=== PATIENT | male | born 1990 | race African-American/Black ===

== ENCOUNTER 2016-07-02 03:02 | Emergency (ER) | payer SELFPAY ==
[2016-07-02 03:07] VITALS: BP 126/81; BMI 22.2
--- NOTE | 2016-07-02 03:58 | DR.EARACHE ---
HPI - Time Seen Time seen: 03:55 - PCP Primary Care Physician: NFD - Complaint/Symptoms Chief Complaint Doctor Comments: Patient complains of wax build up in his left ear and not being able to get it out. States he has been putting sweat oil, hydrogen perioxide in his ear but unable to remove all the wax. States his girl friend has been trying o remove the wax with twizzers but it will not come out like it is attached to his ear. He denies fever, chills, nausea or vomiting. States he is not having any problems hearing. States he smoke 1/2 pack cigarette daily and had two beers today> He has no local doctor and has not gone to an ENT. Chief Complaint:: WAX BUILD UP IN LEFT EAR - Nurses notes reviewed Nurses Notes Review: Yes - Source History Provided: Patient - Mode of arrival Mode of Arrival: Ambulatory - Timing Onset of Chief Complaint: 07/02/16 Came on: Gradually - Duration Duration: Constant How lon Duration: Days - Severity Severity: Mild - Context Context: Spontaneously Developed - Associated signs and symptoms Associated signs and symptoms: Runny nose PMH - PMH Past Medical History: No Past Medical History: Alzheimers Past Surgical History: Yes Surgical History: Other Past Surgical History Comment: PLASTIC SURGERY TO LEFT FACE - Family History History of Family Medical Conditions: No - Social History Type of Tobacco Use: Cigarettes Alcohol Use: Occasionally Do you use any recreational Drugs:: No Lives With: Significant Other Lives Where: Home - infectious screening Have you traveled outside the country in the last 6 months?: No Isolation: Standard ROS - Review of Systems Constitutional: No Symptoms Reported. negative: See HPI, Chills, Diaphoresis, Fever, Malaise, Weakness, Irritable, Fatigue, Loss of Appetite, Other Eyes: No Symptoms Reported. negative: See HPI, Eye Pain, Blurred Vision, Tearing, Discharge, Photophobia, Diplopia, Other ENTM: No Symptoms Reported, Ear Discharge, Nose Discharge, Nose Congestion. negative: See HPI, Ear Pain, Pulling on Ears, Hearing Loss, Nose Pain, Epistaxis , Mouth Pain, Mouth Swelling, Loose Teeth, Drooling, Throat Pain, Throat Swelling, Ear Foreign Body Respiratoy: No Symptoms Reported Cardiovascular: No Symptoms Reported Gastrointestinal/Abdominal: No Symptoms Reported Genitourinary: No Symptoms Reported. negative: See HPI, Discharge, Dysuria, Frequency, Hematuria, Pain, Bleeding, Other Neurological: No Symptoms Reported Musculoskeletal: No Symptoms Reported Integumentary: No Symptoms Reported Hematologic/Lymphatic: No Symptoms Reported Endocrine: No Symptoms Reported Psychiatric: No Symptoms Reported PE - Vitals Vitals: Temperature 97.2 F Pulse Rate 75 Respiratory Rate 16 Blood Pressure [Left Arm] 134/65 Blood Pressure 126/81 O2 Sat by Pulse Oximetry 96 - General Limitations: No Limitations General Appearance: Alert, In No Apparent Distress - Head Head Exam: Normal Inspection, Atraumatic, Normocephalic - Eyes Eye exam: Normal Appearance, PERRL, EOMI. negative: Scleral Icterus, Conjunctival Injection, Nystagmus, Miosis, Mydrasis, Periorbital Swelling, Periorbital Tenderness, Other - ENT ENT Exam: Normal Exam, Normal Oropharynx, Normal External Ear Exam, Mucous Membranes Moist, TM's Normal Bilaterally External Ear Exam: Normal External Inspection TM/Canal Exam: Bilateral Normal Nasal Speculum Exam: Bilateral Normal Mouth Exam: Normal Inspection Teeth Exam: Normal Inspection Throat Exam: Normal Inspection - Neck Neck Exam Focused: Normal Inspection, Midline Tenderness, Paraspinal Tenderness. negative: Tenderness (Other), Tracheal Deviation, Aneterior Neck Swelling, Thyroid Enlargement, JVD, Carotid Bruit, Other - Chest Chest Inspection: Normal Inspection, Symmetric Chest Wall Rise. negative: Tenderness, Rash, Abscess, Other - Respiratory Respiratory Exam: Normal Lung Sounds Bilat Respiratory Exam: Bilateral Clear to Auscultation - Cardiovascular Cardiovascular Exam: Regular Rate, Normal Rhythm, Normal Heart Sounds. negative : Bradycardia, Tachycardia, Irregular Rhythm, Systolic Murmur, Diastolic Murmur , Rubs, Gallop, Clicks, JVD, +S1, +S2, +S3, +S4, Other - Abdominal Exam Abdominal Exam: Normal Inspection, Normal Bowel Sounds, Soft. negative: Distention, Tenderness, Guarding, Rebound, Rigidity, Dimnished Bowel Sounds, Hyperactive Bowel Sounds, Hypoactive Bowel Sounds, Organomegaly, Trauma, Incision, Ascites, Mass, Bruit, Pulsatile Mass, Hernia, Other Abdominal Tenderness: negative: RUQ, RLQ, LUQ, LLQ, Epigastrium, Suprapubic, Diffuse, Mild, Moderate, Severe, Other - Back Back Exam: Normal Inspection, Full ROM. negative: Tenderness, (R) CVA Tenderness, (L) CVA Tenderness, Muscle Spasm, Paraspinal Tenderness, Vertebral Tenderness, Rashes, (R) Sciatic Notch Tenderness, (L) Sciatic Notch Tendern, (R ) Straight Leg Raise, (L) Straight Leg Raise, Other - Neurological Neurological Exam: Alert, Oriented X3, CN II-XII Intact, Normal Gait, Reflexes Normal. negative: Motor Sensory Deficit, Other - Psychiatric Psychiatric Exam: Normal Affect, Normal Mood. negative: Depressed, Agitated, Anxious, Flat Affect, Manic, Homicidal Ideation, Suicidal Ideation, Other - Skin Skin Exam: Warm, Dry, Intact, Normal Color. negative: Rash, Cyanosis, Diaphoresis, Erythema, Pallor, Mottled, Other - Diagnosis Discharge Problem: Excessive cerumen in left ear canal Otitis media Qualifiers: Laterality: left - Discharge Plan Disposition: 01 HOME, SELF-CARE Condition: Stable Prescriptions: Amoxicillin & Pot Clavulanate [AUGMENTIN TAB 875 mg/125 mg *] 1 tab PO BID #[id number] tab - Follow ups/Referrals Follow ups/Referrals: NFD,None [Primary Care Provider] - 3 days MARIAH HOWELL [STAFF PHYSICIAN] - 3 days - Instructions Instructions: Cerumen Impaction, Otitis Media, Adult
[2016-07-02] MEDS ORDERED: [UNRECOGNIZED DRUG - OTHER] AFF EAR ONE (04:05)
[2016-07-02] MEDS ORDERED: DEBROX AFF EAR ONE (04:05)
[2016-07-02] MEDS ORDERED: [UNRECOGNIZED DRUG - OTHER] ONE (04:07)
[2016-07-02] MEDS ORDERED: DEBROX ONE (04:07)
== END 2016-07-02 04:53 | disposition home or self-care (01) ==
LOC: ER 03:02
PROC: 3E1B38X Irrigation of Ear using Irrigating Substance, Percutaneous Approach, Diagnostic (ICD-10-PCS; principal; 2016-07-02)
DX: H61.22 Impacted cerumen, left ear (principal); H66.92 Otitis media, unspecified, left ear
CPT/HCPCS: 69210; 99282